=== PATIENT | female | born 1990 | race Caucasian/White ===

== ENCOUNTER 2020-11-08 08:49 | Emergency (ER) | payer SELFPAY ==
[~2020-11-08] VITALS: Ht 154.9 cm; Wt 97.7 kg
[2020-11-08] MEDS ORDERED: ESCITALOPRAM OX10 MG PO (09:09)
[2020-11-08] MEDS ORDERED: METOPROL TAR25 MG PO (09:09)
[2020-11-08] MEDS ORDERED: FLOXIN OTIC0.3 % AU ×3 (09:57→14:51)
[2020-11-08 10:00] VITALS: BP 114/75
== END 2020-11-08 10:00 | disposition home or self-care (01) | DRG 156 ==
LOC: ED 08:49
DX: H60.91 Unspecified otitis externa, right ear (principal); I10 Essential (primary) hypertension; F17.210 Nicotine dependence, cigarettes, uncomplicated

== ENCOUNTER 2020-12-09 14:10 | Emergency (ER) | payer SELFPAY ==
[~2020-12-09] VITALS: Ht 154.9 cm; Wt 102.0 kg
[~2020-12-09 14:10] MED LIST: ESCITALOPRAM OX10 MG PO; FLOXIN OTIC0.3 % AU; METOPROL TAR25 MG PO
[2020-12-09 15:06] LABS: HEMATOCRIT 39.9 % (37.0-47.0); HEMOGLOBIN 14.1 g/dl (12.0-16.0); IMMATURE GRANULOCYTES 0.6 % (0.0-5.0); MEAN CELL VOLUME 85.4 fL CALC (80.0-100.0); MEAN CORPUSCULAR HGB 30.2 pG CALC (26.0-32.0); MEAN CORPUSCULAR HGB CONC 35.3 g/dL CAL (32.0-36.0); NEUT# 6.01 thou/uL (2.00-7.15); RED BLOOD COUNT 4.67 mill/uL (4.20-5.60); RED CELL DISTRI WIDTH 13.5 % (11.5-15.5)
[2020-12-09 15:24] LABS: URINE BLOOD DIPSTICK LARGE (NEGATIVE); URINE COLOR YELLOW; URINE GLUCOSE - DIPSTICK NEGATIVE (NEGATIVE); URINE KETONE NEGATIVE (NEGATIVE); URINE LEUK ESTERASE TRACE (NEGATIVE); URINE PH 5.5 (4.5-8.0); URINE PROTEIN - DIPSTICK 30 mg/dL (NEG-TRACE); URINE SPECIFIC GRAVITY >=1.030; URINE UROBILINOGEN - DIPSTICK 0.2 E.U./dL (0.2)
[2020-12-09 15:24] LABS: ALBUMIN 4.5 g/dL (3.2-5.0); ALKALINE PHOSPHATASE 76 u/l (38-126); ANION GAP 16 (6-22 (CALC)); BILIRUBIN, TOTAL 0.3 mg/dL (0.0-1.4); BUN 20 mg/dL (7-17); BUN/CREATININE RATIO 23 (12-20 (CALC)); CARBON DIOXIDE 21 mmol/l (22-30); CHLORIDE 108 mmol/l (95-108); CREATININE 0.9 mg/dL (0.5-1.0); GFR > 60 ML/MIN (>=60 (CALC)); GFR FOR AFR.AMER. > 60 ML/MIN (>=60 (CALC)); LIPASE 49 u/l (23-300); POTASSIUM 4.1 mmol/l (3.5-5.1); SGOT/AST 33 u/l (14-36); SODIUM 141 mmol/l (137-146); TOTAL PROTEIN 7.7 g/dL (6.3-8.2)
[2020-12-09 15:32] LABS: URINE BILIRUBIN - DIPSTICK SMALL (NEGATIVE); URINE NITRITE - DIPSTICK NEGATIVE (Negative)
[2020-12-09 15:34] LABS: URINE RBC >100 RBC/hpf (0-5); URINE SQUAMOUS EPITHELIAL CELL MANY EPI/hpf (0-FEW)
[2020-12-09] MEDS ORDERED: KEFLEX500 MG PO (17:27)
[2020-12-09 17:36] VITALS: BP 136/71
== END 2020-12-09 17:44 | disposition home or self-care (01) | DRG 694 ==
LOC: ED 14:10
DX: N21.0 Calculus in bladder (principal); I10 Essential (primary) hypertension; F17.200 Nicotine dependence, unspecified, uncomplicated; Z87.442 Personal history of urinary calculi